=== PATIENT | female | born 1975 | race Caucasian/White ===

== ENCOUNTER 2017-10-25 20:07 | Emergency (ER) | payer OTHER ==
[~2017-10-25] VITALS: Ht 180.3 cm; Wt 95.7 kg
[2017-10-25 21:57] VITALS: BP 163/124
== END 2017-10-25 21:57 | disposition home or self-care (01) ==
LOC: ED 20:07
DX: I10 Essential (primary) hypertension (principal)
CPT/HCPCS: J0696

== ENCOUNTER 2020-04-23 23:52 | Emergency (ER) | payer OTHER ==
[~2020-04-23] VITALS: Ht 177.8 cm; Wt 98.9 kg
[2020-04-24 00:07] VITALS: BP 191/140; Ht 177.8 cm; Wt 98.9 kg
== END 2020-04-24 01:41 | disposition left against medical advice (07) ==
LOC: ED 23:52
DX: Z53.21 Procedure and treatment not carried out due to patient leaving prior to being seen by health care provider (principal)